=== PATIENT | female | born 1955 | race Two or more races ===

== ENCOUNTER 2017-10-28 09:27 | Day surgery (SDC) | payer MEDICARE, BC ==
[~2017-10-28 09:27] MED LIST: Metoclopramide 10 MG/2 ML SDV IV PRN; Sodium Chloride 0.9% 1,000 ML IV SCH; Sodium Chloride 0.9% 10 ML Syringe FLUSH PRN
[2017-10-28 12:06] VITALS: BP 107/59
--- NOTE | 2017-10-28 18:26 | OR ---
DATE OF OPERATION: 10/28/2017 PREOPERATIVE DIAGNOSIS: Bright red blood per rectum. POSTOPERATIVE DIAGNOSIS: 1. Grade 1 internal hemorrhoids. 2. Otherwise normal colonoscopy. OPERATION: Colonoscopy. COMPLICATIONS: None. DRAINS: None. SPECIMENS: None. ESTIMATED BLOOD LOSS: Zero. ANESTHESIA: General propofol anesthesia. INDICATION: Ms. Govea is a 62-year-old female who has had previous colonoscopies in the past. She does not have any family history of colon cancer, but has had several episodes of bright red blood per rectum. She is here for evaluation. The above-mentioned procedure was explained. The risks, benefits, and complications were explained. The patient understood and agreed and was brought to the operating room. DESCRIPTION OF THE PROCEDURE: The patient was brought to the operating room, placed in the left lateral decubitus position on the operating room table. Satisfactory general propofol anesthesia was administered. We began by performing a rectal examination which was within normal limits. No other identifiable factors. I then placed the endoscope by finger introduction into the rectum and subsequently advanced to the level of the cecum. The cecum was identified by the appendiceal orifice, the cecal strap, and the ileocecal valve. Careful evaluation of the cecum revealed no other negative findings. Evaluation of the ileocecal valve also revealed no blood at the orifice and a view of the distal terminal ileum was within normal limits. Next, we subsequently evaluated the mucosa of the colon. This appeared normal with no telangiectasias, no diverticula, no neoplastic growths or polyps. I then performed a retroflexion maneuver within the rectum and identified on retroflexion, grade 1 internal hemorrhoids. The remainder of the rectum was within normal limits. However, there was a slight increased vascularity, but this did not appear significant. I then subsequently decompressed the colon and withdrew the endoscope. The patient tolerated the procedure well. There were no complications. Instrument count was correct. The patient was awoken in the OR and taken back for recovery. CALI/JUAN /[id number]
== END 2017-10-28 13:00 | disposition home or self-care (01) ==
LOC: LB.SDS 09:27
PROVIDERS: ATTEND Surgery
DX: K92.1 Melena (principal); K64.0 First degree hemorrhoids; K29.70 Gastritis, unspecified, without bleeding; K21.9 Gastro-esophageal reflux disease without esophagitis; Z88.1 Allergy status to other antibiotic agents
CPT/HCPCS: J7040